=== PATIENT | female | born 2000 | race Two or more races ===

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

== ENCOUNTER 2024-01-25 14:59 | Emergency (ER) | payer SELFPAY ==
[~2024-01-25] VITALS: Ht 160 cm; Wt 95.6 kg
[2024-01-25 21:00] VITALS: PULSE 95; RESP 15; O2SAT 100
[2024-01-25] MEDS: SODIUM CHLORIDE 0.9% 1,000 ML IV ONE (21:15)
[2024-01-25 21:25] LABS: Basophils # (auto) 0 10 ^3/uL (0-0.2); Basophils % (auto) 0.3 % (0.0-2.0); Eosinophils # (auto) 0.1 10 ^3/uL (0-0.8); Eosinophils % (auto) 1.7 % (0.0-7.0); Hematocrit 34.8 % (36.0-46.0); Hemoglobin 11.6 g/dL (12.2-16.2); Lymphocytes # (auto) 1.5 10 ^3/uL (0.4-5.4); Lymphocytes % (auto) 20.1 % (10.0-50.0); Mean Corpuscular Hemoglobin 31.7 pg (28.0-32.0); Mean Corpuscular Hgb Conc. 33.4 g/dL (32.0-36.0); Mean Corpuscular Volume 94.9 fL (80.0-100.0); Monocytes # (auto) 0.3 10 ^3/uL (0-1.3); Monocytes % (auto) 4.2 % (0.0-12.0); Neutrophils # (auto) 5.5 10 ^3/uL (1.6-8.6); Neutrophils % (auto) 73.7 % (37.0-80.0); Red Blood Cells 3.67 10^6/uL (4.0-5.20); Red Cell Distribution Width 13.2 % (11.8-14.3); White Blood Cell 7.5 10^3/uL (4.4-10.8)
[2024-01-25] MEDS: ONDANSETRON HCL 4 MG/2 ML VIAL IV ONE (22:13)
[2024-01-25] MEDS: MORPHINE SULFATE 4 MG/ML SYR/VIAL IV ONE (22:13)
[2024-01-25 22:46] LABS: Basophils # (auto) 0 10 ^3/uL (0-0.2); Basophils % (auto) 0.3 % (0.0-2.0); Eosinophils # (auto) 0.1 10 ^3/uL (0-0.8); Eosinophils % (auto) 0.8 % (0.0-7.0); Hematocrit 35.5 % (36.0-46.0); Hemoglobin 11.4 g/dL (12.2-16.2); Lymphocytes # (auto) 2.6 10 ^3/uL (0.4-5.4); Lymphocytes % (auto) 22.2 % (10.0-50.0); Mean Corpuscular Hemoglobin 30.8 pg (28.0-32.0); Mean Corpuscular Volume 96.4 fL (80.0-100.0); Monocytes # (auto) 0.5 10 ^3/uL (0-1.3); Monocytes % (auto) 4.1 % (0.0-12.0); Neutrophils # (auto) 8.4 10 ^3/uL (1.6-8.6); Neutrophils % (auto) 72.6 % (37.0-80.0); Nucleated Red Blood Cells % 0.1 %; Red Blood Cells 3.69 10^6/uL (4.0-5.20); Red Cell Distribution Width 13.4 % (11.8-14.3); White Blood Cell 11.6 10^3/uL (4.4-10.8)
[2024-01-26] MEDS: NS/OXYTOCIN 20UNITS 1,000 ML IV ONE (00:10)
[2024-01-26] MEDS ORDERED: NS/OXYTOCIN 20UNITS 1,000 ML IV ONE (00:15)
[2024-01-26] MEDS: LACT. RINGERS/OXYTOCIN 20UNITS 1,000 ML IV ONE ×3 (00:22→04:57)
[2024-01-26] MEDS: SODIUM CHLORIDE 0.9% 1,000 ML IV ONE (01:43)
[2024-01-26] MEDS: KETOROLAC TROMETH 30 MG/ML 1ML VIAL IV ONE (02:03)
[2024-01-26] MEDS: LACTATED RINGER'S 1,000 ML IV ONE ×2 (04:57→05:05)
[2024-01-26 05:12] LABS: INR 1.37 (0.9-1.15); Prothrombin Time 14.1 sec (9.3-11.8)
[2024-01-26] MEDS ORDERED: RHO (D) IMMUNE GLOBULIN 300 MCG INJ IM PRN (07:15)
[2024-01-26] MEDS ORDERED: ceFAZolin 2 GM/D5W50ml 50 ML IV ONE (07:16)
[2024-01-26] MEDS ORDERED: fentaNYL CITRATE 100 MCG/2 ML VL ONE (07:29)
[2024-01-26] MEDS ORDERED: MIDAZOLAM HCL 2MG/2ML 2ml VIAL (1mg/ml) ONE (07:29)
[2024-01-26] MEDS ORDERED: PROPOFOL 10 MG/ML 20 ML IV ONE (07:30)
[2024-01-26] MEDS ORDERED: LIDOCAINE 2% (LOCAL ANESTH.) PF 5ml SDV ONE (07:30)
[2024-01-26] MEDS ORDERED: ONDANSETRON HCL 4 MG/2 ML VIAL ONE (07:30)
[2024-01-26] MEDS ORDERED: KETAMINE 50mg/ML 1ml syringe ONE (07:53)
[2024-01-26 08:04] VITALS: O2SAT 100
[2024-01-26] MEDS ORDERED: PHENYLEPHRINE HCL 10 MG/ML VL ONE (08:14)
[2024-01-26] MEDS ORDERED: ONDANSETRON HCL 4 MG/2 ML VIAL IV ONE (08:30)
[2024-01-26 09:13] LABS: Basophils # (auto) 0 10 ^3/uL (0-0.2); Eosinophils # (auto) 0 10 ^3/uL (0-0.8); Eosinophils % (auto) 0.3 % (0.0-7.0); Hemoglobin 7.2 g/dL (12.2-16.2); Monocytes # (auto) 0.5 10 ^3/uL (0-1.3)
[2024-01-26 09:15] LABS: Basophils % (auto) 0.3 % (0.0-2.0); Hematocrit 21.8 % (36.0-46.0); Lymphocytes # (auto) 2.3 10 ^3/uL (0.4-5.4); Lymphocytes % (auto) 23.7 % (10.0-50.0); Monocytes % (auto) 5.4 % (0.0-12.0); Neutrophils # (auto) 6.8 10 ^3/uL (1.6-8.6); Neutrophils % (auto) 70.3 % (37.0-80.0); Red Blood Cells 2.25 10^6/uL (4.0-5.20); Red Cell Distribution Width 13.1 % (11.8-14.3); White Blood Cell 9.7 10^3/uL (4.4-10.8)
[2024-01-26 11:02] VITALS: TEMP 98.7
[2024-01-26 11:32] VITALS: BP 94/51; PULSE 81; RESP 17; O2SAT 100
== END 2024-01-26 06:45 | disposition admitted as inpatient to this hospital (09) ==
LOC: ER 14:59
DX: O03.4 Incomplete spontaneous abortion without complication (principal); R10.2 Pelvic and perineal pain; Z98.890 Other specified postprocedural states
CPT/HCPCS: 36415; 76801; 76817; 84702; 85025; 85610; 86850; 86900; 86901; 88305; 96361; 96365; 96366; 96375; 99285; J0690; J1885; J2001; J2250; J2270; J2371; J2405; J2590; J2704; J3010; J7030